=== PATIENT | male | born 1955 | race Caucasian/White ===

== ENCOUNTER 2020-06-23 23:59 | Emergency (ER) | payer OTHER ==
[~2020-06-23] VITALS: Ht 182.9 cm; Wt 80.7 kg
[2020-06-24] MEDS ORDERED: HYDROCODONE/APAP 10/325MG TABLET ONE (00:19)
[2020-06-24] MEDS ORDERED: HYDROCODONE/APAP 10/325MG TABLET PO ONE (00:30)
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
[2020-06-24] MEDS ORDERED: HYDR-3976 PO (01:14)
[2020-06-24 02:22] VITALS: BP 128/71
--- NOTE | 2020-06-24 02:24 | NUR ---
Patient discharged to home in stable condition. Written and verbal after care instructions given. Patient verbalizes understanding of instruction.
== END 2020-06-24 02:24 | disposition home or self-care (01) ==
LOC: ER 06-24 00:02
DX: M54.2 Cervicalgia (principal); I10 Essential (primary) hypertension; Z79.899 Other long term (current) drug therapy; V49.59XA Passenger injured in collision with other motor vehicles in traffic accident, initial encounter; Y93.89 Activity, other specified; Y92.488 Other paved roadways as the place of occurrence of the external cause; Y99.8 Other external cause status
CPT/HCPCS: 72050-TC; 72110-TC; 72125-TC